=== PATIENT | female | born 1955 | race Two or more races ===

== ENCOUNTER 2025-10-30 08:00 | Day surgery (SDC) | payer OTHER ==
[2025-10-23 12:20] VITALS: BP 144/81
[~2025-10-30] VITALS: Ht 175.3 cm; Wt 79.4 kg
[2025-10-30] MEDS ORDERED: POVIDONE-IODINE 118 ML BOTT TOP ONE (08:31)
[2025-10-30] MEDS ORDERED: IBU600 MG PO (10:53)
== END 2025-10-30 16:40 | disposition home or self-care (01) ==
LOC: CIR.AMB 08:00
PROVIDERS: ATTEND Obstetrics & Gynecology Gynecology
DX: N84.0 Polyp of corpus uteri (principal)